=== PATIENT | male | born 1975 | race Caucasian/White ===

== ENCOUNTER 2021-06-02 18:45 | Emergency (ER) | payer BC ==
[~2021-06-02] VITALS: Ht 172.7 cm; Wt 65.8 kg
[~2021-06-02 18:45] MED LIST: AMLO5 PO; HYDMOR4 PO; PROM25 PO; TAMS.4ER PO
[2021-06-02 19:12] LABS: BASOPHILS ABSOLUTE AUTO 0.03 K/mm3 (0.00-0.23); BASOPHILS PERCENT AUTO 0 % (0-2); EOSINOPHILS ABSOLUTE AUTO 0.14 K/mm3 (0.00-0.68); EOSINOPHILS PERCENT AUTO 2 % (0-6); Hematocrit 41.4 % (37.0-53.0); Hemoglobin 13.9 g/dL (13.5-17.5); IMMATURE GRAN ABSOLUTE AUTO 0.02 K/mm3 (0.00-0.10); IMMATURE GRAN PERCENT AUTO 0 % (0-1); LYMPHOCYTES PERCENT AUTO 37 % (21-46); MONOCYTES ABSOLUTE AUTO 0.81 K/mm3 (0.16-1.47); MONOCYTES PERCENT AUTO 10 % (4-13); Mean Corpuscular HGB 29.7 pg (26.0-34.0); Mean Corpuscular HGB Conc 33.6 g/dL (31.5-36.5); Mean Corpuscular Volume 89 fL (80-100); NEUTROPHILS ABSOLUTE AUTO 4.04 K/mm3 (1.96-9.15); NEUTROPHILS PERCENT AUTO 51 % (41-73); Platelet Count 249 K/mm3 (150-400); RDW Coefficient Variation 12.6 % (11.7-14.2); RDW Standard Deviation 41.1 fL (35.1-46.3); Red Blood Cell Count 4.68 M/mm3 (4.30-5.90); White Blood Cell Count 7.94 K/mm3 (4.00-11.30)
[2021-06-02 19:50] LABS: Alanine Aminotransfer (ALT/SGP 36 U/L (12-78); Albumin, Blood 3.6 g/dL (3.4-5.0); Alk Phos 57 U/L (50-136); Anion Gap 9 mmol/L (6-16); Aspartate Aminotrans (AST/SGOT 18 U/L (12-37); Bilirubin, Total 0.3 mg/dL (0.1-1.0); Blood Urea Nitrogen 30 mg/dL (8-24); CO2, Blood 23 mmol/L (21-32); Calcium, Blood 8.9 mg/dL (8.5-10.1); Chloride, Blood 106 mmol/L (98-108); Creatinine, Blood 0.97 mg/dL (0.60-1.20); Globulin, Blood 3.7 g/dL (2.2-4.0); Glomerular Filtration Rate >60 (60-); Glucose, Blood 138 mg/dL (70-99); Sodium, Blood 138 mmol/L (136-145); Total Protein, Blood 7.3 g/dL (6.4-8.2); Troponin I <0.015 ng/mL (0.000-0.040)
== END 2021-06-02 22:15 | disposition home or self-care (01) ==
LOC: ER 18:45
PROVIDERS: Emergency Medicine
DX: R55 Syncope and collapse (principal); R06.02 Shortness of breath; E87.6 Hypokalemia; R00.2 Palpitations
CPT/HCPCS: 36415; 71275; 80053; 84484; 85025; 93005; 93010; 96374; 99284-25; A9270; J2405; J7030; Q9967

== ENCOUNTER → 2021-09-13 | Outpatient (CLI) | payer BC | END | disposition home or self-care (01) | LOC: LAB SHORT 14:31 → LAB 14:31 | DX: R35.0 Frequency of micturition (principal) | CPT/HCPCS: 87086 ==

== ENCOUNTER → 2025-02-22 | Outpatient (CLI) | payer BC ==
[2025-02-22 08:27] LABS: Source, Urine Voided
[2025-02-22 09:55] LABS: Bilirubin, Urine Neg (Neg); Glucose Qualitative, Urine Neg (Neg); Ketones, Urine Neg (Neg); Leukocyte Esterase, Urine Neg (Neg); Protein, Urine 1+ (Neg); Specific Gravity, Urine 1.020 (1.003-1.022); Urobilinogen, Urine NORM (Normal)
[2025-02-22 10:01] LABS: Color, Urine Pale Yellow (P-Yellow)
[2025-02-22 10:02] LABS: White Blood Cells, Urine Not Seen /hpf (0-5)
== END ==
LOC: LAB SHORT 06:35 → LAB 06:35
PROVIDERS: Physician Assistant
DX: R10.84 Generalized abdominal pain (principal); R19.7 Diarrhea, unspecified; R35.0 Frequency of micturition
CPT/HCPCS: 81001

== ENCOUNTER → 2025-04-01 | Outpatient (CLI) | payer BC ==
[~2025-04-01] MED LIST changes: +Prinivil10 MG PO
== END | disposition home or self-care (01) ==
LOC: LAB SHORT 15:19 → LAB 15:19
DX: N20.0 Calculus of kidney (principal)
CPT/HCPCS: 87086

== ENCOUNTER 2025-04-28 07:36 | Day surgery (SDC) | payer BC ==
[~2025-04-28] VITALS: Ht 170.2 cm; Wt 62.8 kg
[2025-04-28] VITALS (13 sets, daily range): BP systolic 125–161; BP diastolic 76–99
[~2025-04-28 07:36] MED LIST changes: +CeFAZolin Sodium 2,000 MG in NS 100 ML IV SCH
[2025-04-28] MEDS ORDERED: CeFAZolin Sodium 2,000 MG VIAL ONE (08:09)
[2025-04-28] MEDS ORDERED: IBUP800 PO (08:18)
[2025-04-28] MEDS ORDERED: ACET500 PO (08:18)
[2025-04-28] MEDS ORDERED: FentaNYL Citrate 50 MCG/ML 2 ML Injection ONE (09:09)
[2025-04-28] MEDS ORDERED: Rocuronium Bromide 10 MG/ML 5ML Injection IV ONE (09:09)
[2025-04-28] MEDS ORDERED: Midazolam HCl 1MG / ML 2ML Vial ONE (09:10)
--- NOTE | 2025-04-28 09:12 | NUR ---
Dr. Lomas here with patient discussed pt having pain on both right and Left kidneys, Dr changed concent and plan and reconsented pt for bilateral procedure
[2025-04-28] MEDS ORDERED: Dexamethasone Sod Phos 10 MG/ML 1ML VIAL ONE (09:47)
[2025-04-28] MEDS ORDERED: Ondansetron HCl 2 MG / ML 2ML Vial ONE (09:47)
[2025-04-28] MEDS ORDERED: Sugammadex Sodium 200 MG/2ML SDV (100 MG/ML) ONE (09:55)
[2025-04-28] MEDS ORDERED: Ketorolac Tromethamine 30mg Vial ONE (09:55)
[2025-04-28] MEDS ORDERED: HYDROmorphone HCl/Pf 1MG SYR IV PRN (10:00)
[2025-04-28] MEDS ORDERED: FentaNYL Citrate 50 MCG/ML 2 ML Injection IV PRN ×3 (10:00→10:05)
[2025-04-28] MEDS ORDERED: LORazepam 2 MG/ML 1ML Injection IV PRN (10:05)
[2025-04-28] MEDS ORDERED: Labetalol HCL 5 MG/ML 4ML Injection (Single Dose) IV PRN (10:05)
[2025-04-28] MEDS ORDERED: Ondansetron HCl 2 MG / ML 2ML Vial IV PRN ×2 (10:05→10:50)
[2025-04-28] MEDS ORDERED: HYDROcodone 5-APAP 325 TAB PO PRN (10:45)
[2025-04-28] MEDS ORDERED: HYDROmorphone HCl/Pf 1MG SYR ONE (10:53)
--- NOTE | 2025-04-28 12:18 | NUR ---
DISCHARGE NOTE PT A&OX4, BREATING RA, TOLERATINF PO INTAKE. PT ABLE TO VOID PRIOR TO DISCHARGE DARK PINK TINGED URINE. PT C/O CONTINUED PAIN BUT REFUSES SECOND PAIN PILL WHEN OFFERED. PT BECAME NAUSEATED AFTER TRANSFERRING TO FOR DISCHARGE- PT STATES HE IS STILL WANTING TO GO HOME. PT INSTRUCTED TO CALL DR IF CONCERNS ABOUT PAIN AND NAUSEA AT HOME. Patient up to Ambulate independently. Gait steady. Discharge instructions reviewed with patient. Patient verbalizes understanding. Copy given to patient to take home. Discharged via wheelchair to private car for ride home. STRING REMAINS IN PLACE AND SECURED TO SKIN.
== END 2025-04-28 12:15 | disposition home or self-care (01) ==
LOC: ORSCMMR 07:36 → ORD 10:00 → ORSCMMR 12:15
PROVIDERS: Urology
PROC: 0TF48ZZ Fragmentation in Left Kidney Pelvis, Via Natural or Artificial Opening Endoscopic (ICD-10-PCS; principal; 2025-04-28 09:00)
PROC: 0T768DZ Dilation of Right Ureter with Intraluminal Device, Via Natural or Artificial Opening Endoscopic (ICD-10-PCS; principal; 2025-04-28 09:00)
DX: N20.2 Calculus of kidney with calculus of ureter (principal); I10 Essential (primary) hypertension; N40.0 Benign prostatic hyperplasia without lower urinary tract symptoms; K76.0 Fatty (change of) liver, not elsewhere classified; Z79.899 Other long term (current) drug therapy
CPT/HCPCS: A9270; C1758; C1769; C2617; J0690; J1100; J1171; J1885; J2250; J2405; J2704; J3010; J7120

== ENCOUNTER → 2025-05-04 | Outpatient (CLI) | payer BC ==
[~2025-05-04] MED LIST changes: +ACET500 PO; -CeFAZolin Sodium 2,000 MG in NS 100 ML IV SCH; +IBUP800 PO
[2025-05-04 09:52] LABS: Source, Urine Clean Catch
[2025-05-04 12:29] LABS: Bilirubin, Urine 2+ (Neg); Color, Urine Amber (P-Yellow); Glucose Qualitative, Urine Neg (Neg); Ketones, Urine Neg (Neg); Leukocyte Esterase, Urine 1+ (Neg); Protein, Urine 3+ (Neg); Specific Gravity, Urine 1.020 (1.003-1.022); Urobilinogen, Urine 1+ (Normal)
[2025-05-04 12:38] LABS: Red Blood Cells, Urine 50-100 /hpf (0-2)
== END ==
LOC: LAB SHORT 09:49 → LAB 09:49
PROVIDERS: Physician Assistant
DX: N20.0 Calculus of kidney (principal)
CPT/HCPCS: 81001; 87086

== ENCOUNTER → 2025-05-09 | Outpatient (CLI) | payer BC | LOC: LAB 12:53 → LAB SHORT 12:53 | DX: Z46.6 Encounter for fitting and adjustment of urinary device (principal); Z98.890 Other specified postprocedural states | CPT/HCPCS: 87086 ==

== ENCOUNTER 2025-06-26 11:27 | Day surgery (SDC) | payer BC ==
[2025-06-26] VITALS (25 sets, daily range): BP systolic 116–164; BP diastolic 67–122
[~2025-06-26] VITALS: Ht 172.7 cm; Wt 63.7 kg
[~2025-06-26 11:27] MED LIST changes: +PANT40 PO; +Ventolin5 MG/1 ML INH
--- NOTE | 2025-06-26 12:02 | NUR ---
06/26/25 1202 Yani Stein CONFIRMED AND REVIEWED H&P, MEDCICATIONS, ALLERGIES, MEDICAL HISTORY, RESPIRATORY HISTORY, VITAL SIGNS, 3-LEAD EKG, CONSENTS, AND PHYSICIAN ORDERS. PATIENT CONFIRMS NPO STATUS AND AGREES WITH SCHEDULED PROCEDURE. MONITOR INTACT WITH CONTINUOUS PULSE OXIMETRY, CAPNOGRAPHY, 3-LEAD EKG, INTERMITTENT BP. SUPPLEMENTAL O2 TO BE TITRATED THROUGHOUT PROCEDURE TO MAINTAIN O2 SATURATION ABOVE 90%. PATIENT DETERMINED TO BE ASA APPROPRIATE FOR PROPOFOL SEDATION PRIOR TO START OF PROCEDURE BY DR. SOL.
[2025-06-26] MEDS ORDERED: Midazolam HCl 1MG / ML 2ML Vial ONE (12:23)
[2025-06-26] MEDS ORDERED: Ondansetron HCl 2 MG / ML 2ML Vial ONE (12:54)
[2025-06-26] MEDS ORDERED: Ipratropium/Albuterol SulF 2.5-0.5MG/3 ML Amp ONE (13:43)
--- NOTE | 2025-06-26 14:08 | NUR ---
PT WOKE UP SHAKING, UNSURE TO REASON PT WAS KEPT WARM THROUGHOUT THE PROCEDURE AND HIS TEMP ON ARRIVAL TO [facility] WAS 98.1, I PROVIDED WARM BLANKETS AND THE PATIENT SEEMS TO SHIVER LESS ALTHOUGH HE IS STILL SHAKING A LITTLE. AFTER ABOUT 10 MINS IN [facility] IT WAS NOT BY rN THAT THE PATIENT APPEARED TO BE SLIGHTLY WHEEZY, UPON AUSCULTATION THE PATIENT HAD DIMINISHED BREATH SOUNDS BILATERALLY AND WHEEZIN WAS NOTED IN THE BRONCHUS. A DUO-NEB ORDER WAS VERBALLY OBTAINED BY DR. Sandoval AND WAS ADMINISTERED WITH NO ISSUES, UPON COMPLETION OF NEB TREATMENT THE PATIENTS BREATH SOUNDS WERE MUCH CLEARER BILATERALLY AND WHEEZING WAS NOT NOTED. Patient States Post-Procedure ride home has been arranged. Discharged via wheelchair to private car for ride home. Discharge instructions reviewed with patient. Patient verbalizes understanding. Copy given to patient to take home.
[2025-06-26] MEDS ORDERED: Ondansetron HCl 2 MG / ML 2ML Vial IV ONE (15:05)
== END 2025-06-26 23:00 | disposition home or self-care (01) ==
LOC: ORSCMMR 11:27 → ORD 14:15 → ORSCMMR 14:15
PROVIDERS: Family Medicine
PROC: 0DB48ZX Excision of Esophagogastric Junction, Via Natural or Artificial Opening Endoscopic, Diagnostic (ICD-10-PCS; principal; 2025-06-26 13:15)
PROC: 0DB68ZX Excision of Stomach, Via Natural or Artificial Opening Endoscopic, Diagnostic (ICD-10-PCS; principal; 2025-06-26 13:15)
PROC: 0DBK8ZX Excision of Ascending Colon, Via Natural or Artificial Opening Endoscopic, Diagnostic (ICD-10-PCS; principal; 2025-06-26 13:15)
DX: R10.9 Unspecified abdominal pain (principal); K29.70 Gastritis, unspecified, without bleeding; K44.9 Diaphragmatic hernia without obstruction or gangrene; D12.2 Benign neoplasm of ascending colon; K57.30 Diverticulosis of large intestine without perforation or abscess without bleeding; K64.4 Residual hemorrhoidal skin tags; K64.8 Other hemorrhoids; Z12.11 Encounter for screening for malignant neoplasm of colon; I10 Essential (primary) hypertension; E78.5 Hyperlipidemia, unspecified; R63.4 Abnormal weight loss; Z79.899 Other long term (current) drug therapy
CPT/HCPCS: 88305; 88342; J2250; J2405; J2704; J7120